=== PATIENT | female | born 1955 | race Caucasian/White ===

== ENCOUNTER 2020-04-10 21:05 | Emergency (ER) | payer MEDICARE, OTHER ==
[~2020-04-10] VITALS: Ht 165.1 cm; Wt 86.4 kg
[2020-04-10 21:05] VITALS: BP 128/97; TEMP 98
[2020-04-10] MEDS ORDERED: ULTRAM 50MG TAB50 MG PO (22:32)
[2020-04-10] MEDS ORDERED: CEPHALEXIN500 M1 PO (22:32)
[2020-04-10 23:05] VITALS: PULSE 78
== END 2020-04-10 23:05 | disposition home or self-care (01) ==
LOC: COL.ER 21:05
DX: S51.812A Laceration without foreign body of left forearm, initial encounter (principal); Z88.6 Allergy status to analgesic agent; W01.198A Fall on same level from slipping, tripping and stumbling with subsequent striking against other object, initial encounter; Y92.009 Unspecified place in unspecified non-institutional (private) residence as the place of occurrence of the external cause
CPT/HCPCS: J3010; Q4021

== ENCOUNTER 2023-10-07 11:20 | Day surgery (SDC) | payer MEDICARE, OTHER ==
[~2023-10-07] VITALS: Ht 165.1 cm; Wt 83.7 kg
[~2023-10-07 11:20] MED LIST: CEPHALEXIN500 M1 PO; Famotidine 20 MG TAB PO SCH; HYDROmorphone 2 MG/1 ML VIAL IV PRN; LR 1,000 ML IV SCH; Ondansetron 4 MG/2 ML VIAL IV PRN; ULTRAM 50MG TAB50 MG PO; droPERidol 2.5 MG/ML 2 ML VIAL IV PRN; fentaNYL 50 MCG/ML 2 ML VIAL IV PRN; hydrALAZINE 20 MG/ML 1 ML VIAL IV PRN
[2023-10-07] MEDS ORDERED: fentaNYL 50 MCG/ML 2 ML VIAL ONE ×2 (11:56→13:49)
[2023-10-07] MEDS ORDERED: Lidocaine PF 2% (20 MG/ML) 5 ML VIAL ONE (11:56)
[2023-10-07] MEDS ORDERED: Ondansetron 4 MG/2 ML VIAL ONE (11:57)
[2023-10-07] MEDS ORDERED: NS 10 ML IV ONE (11:57)
[2023-10-07] MEDS ORDERED: dexAMETHasone 10 MG/ML VIAL ONE (11:57)
[2023-10-07] MEDS ORDERED: PRINIVIL40 MG PO (12:02)
[2023-10-07] MEDS ORDERED: NORVASC 5MG5 MG/TAB PO (12:04)
[2023-10-07] MEDS ORDERED: CELEBREX 200MG200 MG PO (12:08)
[2023-10-07] MEDS ORDERED: NORCO 325 MG-51 TAB PO ×2 (12:08→14:49)
[2023-10-07] MEDS ORDERED: NEURONTIN300 MG/CAP PO (12:09)
[2023-10-07] MEDS ORDERED: LIPITOR 10MG10 MG PO (12:09)
[2023-10-07] MEDS ORDERED: LASIX 20MG TABL20 MG PO (12:10)
[2023-10-07] MEDS ORDERED: WELLBUTRIN SR150 M1 PO (12:10)
[2023-10-07] MEDS ORDERED: LUNESTA2 MG PO (12:12)
[2023-10-07] MEDS ORDERED: FOSAMAX PLUS D1 TAB PO (12:13)
[2023-10-07] MEDS ORDERED: GLUCOPHAGE500 MG/TAB PO (12:14)
[2023-10-07] MEDS ORDERED: NEXIUM 20MG20 MG PO (12:15)
[2023-10-07] MEDS ORDERED: INDERAL LA 60MG60 MG (12:16)
[2023-10-07] MEDS ORDERED: ZOLOFT 50MG50 MG PO (12:17)
[2023-10-07] MEDS ORDERED: REQUIP 0.5MG0.5 MG PO (12:17)
[2023-10-07] MEDS ORDERED: Lidocaine 1% w EPI (1:100,000) 20 ML Multi-Dose VIAL IJ ONE (13:30)
[2023-10-07 13:41] VITALS: BP 126/55; PULSE 77; TEMP 98.4
[2023-10-07] MEDS ORDERED: ePHEDrine 50 MG/ML VIAL ONE (13:45)
[2023-10-07] MEDS ORDERED: Naloxone 0.4 MG/ML VIAL IV PRN (14:45)
[2023-10-07] MEDS ORDERED: Morphine 4 MG/ML VIAL IV PRN (14:45)
[2023-10-07] MEDS ORDERED: CEPHALEXIN500 M1 PO (14:49)
[2023-10-07 15:20] VITALS: BP 108/53; PULSE 79; TEMP 98.1
[2023-10-07 15:35] VITALS: BP 108/58; PULSE 73
[2023-10-07] MEDS ORDERED: Acetaminophen 500 MG TAB PO SCH (15:43)
[2023-10-07 15:50] VITALS: BP 106/58; PULSE 77
[2023-10-07 16:05] VITALS: BP 118/59; PULSE 69
[2023-10-07 16:20] VITALS: BP 118/59; PULSE 69
--- NOTE | 2023-10-07 17:05 | NUR ---
1520: PATIENT TO BAY 7 VIA COT FROM PACU. ALERT AND ORIENTED. VSS. BREATHING EVEN AND UNLABORED. SPO2 96% ON 2L O2 VIA NASAL CANNULA. PATIENT DENIES NAUSEA AND REQUESTING ICE WATER. REPORT RECEIVED FROM AP ODAN. HOANG WRAP C/D/I AND KNEE IMMOBILIZER IN PLACE. PATIENT STATING PAIN IS TOLERABLE AT THIS TIME. NO FURTHER NEEDS NOTED AT THIS TIME. RESTING IN COT. CALL LIGHT IN REACH. DAUGHTERDENISE, AT BEDSIDE. 1535: PATIENT ALERT AND ORIENTED. PATIENT TOLERATING ICE WATER AND DENIES NAUSEA. SPO2 94% ON 2L O2 VIA NASAL CANNULA. O2 REMOVED AT THIS TIME. PATIENT STATING PAIN IS TOLERABLE. DOES NOT WANT TO ADVANCED DIET AT THIS TIME. RESTING IN COT. NO FURTHER NEEDS NOTED. CALL LIGHT IN REACH. DAUGHTER AT BEDSIDE. 1550: ALERT AND ORIENTED. PATIENT TOLERATING ICE WATER AND DENIES NAUSEA. REQUESTING CRACKERS AT THIS TIME. SPO2 92% ON RA. DRESSING REMAINS C/D/I. KNEE IMMBOILIZER IN PLACE. STATING PAIN REMAINS TOLERABLE. NO FURTHER NEEDS NOTED. RESTING IN COT. CALL LIGHT IN REACH. DAUGHET AT BEDSIDE. 1605: ALERT AND ORIENTED. PATIENT TOLERATING CRACKERS. DENIES NAUSEA. STATING PAIN IS TOLERABLE. VSS. BREATHING EVEN AND UNLABORED. SP02 94% ON RA. DRESSING REMAINS C/D/I. KNEE IMMOBILIZER IN PLACE. NO FURTHER NEEDS NOTED. RESTING IN COT. CALL LIGHT IN REACH. DAUGHTER AT BEDSIDE. 1615: PATIENT REQUESTING PAIN MEDICATION. PRN PAIN MEDICATION GIVEN ORDERED. 1620: ALERT AND ORIENTED. VSS. PATIENT DENIES NAUSEA STATING PAIN IS TOLERABLE. DRESSING REMAINS C/D/I. KNEE IMMOBILIZER IN PLACE. NO FURTHER NEEDS NOTED. RESTING IN COT. CALL LIGHT IN REACH. DAUGHTER AT BEDSIDE. 1623: IV DC'D AT THIS TIME. PATIENT DAUGHTER ASSISTED HER WITH DRESSING AND TRANSFERED HER TO THE BATHROOM. 1650: DISCHARGE INSTRUCTIONS COMPLETED AT THIS TIME. PATIENT AND DAUGHTER STATED UNDERSTANDING OF THE INSTUCTIONS AND FOLLOW-UP CARE. DISCHARGE PAPERWORK GIVEN TO DAUGHTER. NO FURTHER QUESTIONS AT THIS TIME. 1624: PATIENT OFF UNIT VIA WHEELCHAIR AT THIS TIME. PATIENT DISCHARGED TO HOME VIA PERSONAL VEHICLE WITH DAUGHTER.
== END 2023-10-07 16:54 | disposition home or self-care (01) ==
LOC: SDCO 11:20
DX: M25.861 Other specified joint disorders, right knee (principal); K21.9 Gastro-esophageal reflux disease without esophagitis; E11.9 Type 2 diabetes mellitus without complications; F17.210 Nicotine dependence, cigarettes, uncomplicated; Z79.84 Long term (current) use of oral hypoglycemic drugs; Z79.899 Other long term (current) drug therapy
CPT/HCPCS: J0665; J0690; J1100; J1170; J2405; J2704; J3010; J7120; L1830